=== PATIENT | female | born 1955 | race Caucasian/White ===

== ENCOUNTER 2021-04-18 17:18 | Emergency (ER) | payer MEDICARE, BC ==
[~2021-04-18] VITALS: Ht 162.6 cm; Wt 86.2 kg
[~2021-04-18 17:18] MED LIST: CRANBERRY; LISINOPRIL-HCT1 EAC4 PO; PANTOPRAZOLE SO40 MG PO; PHENERGAN 25 MG; Z.0.ATIVAN1 MG; Z.0.DEXILANT60 MG PO; nexium
[2021-04-18] MEDS ORDERED: IBUPROFEN IB200 MG PO (17:31)
[2021-04-18] MEDS ORDERED: LIDOCAINE HCL 2% LOCAL 20 ML VIAL ONE (17:40)
[2021-04-18] MEDS ORDERED: BACITRACIN ZINC 0.9GM TP ONE ×2 (17:41→17:45)
[2021-04-18] MEDS ORDERED: LIDOCAINE HCL 2% LOCAL 20 ML VIAL INJ ONE (17:45)
[2021-04-18] MEDS ORDERED: TETANUS/DIPHTHERIA TOX ADULT 0.5 ML SYR ONE (18:22)
[2021-04-18] MEDS ORDERED: TETANUS/DIPHTHERIA TOX ADULT 0.5 ML SYR IM ONE (18:30)
== END 2021-04-18 18:28 | disposition home or self-care (01) ==
LOC: FSED 17:25
DX: S61.212A Laceration without foreign body of right middle finger without damage to nail, initial encounter (principal); G89.11 Acute pain due to trauma; W31.89XA Contact with other specified machinery, initial encounter; Z23 Encounter for immunization
CPT/HCPCS: 12001; 90471; 90714; 99283; J2001

== ENCOUNTER 2021-05-02 12:11 | Emergency (ER) | payer MEDICARE, BC ==
[~2021-05-02] VITALS: Ht 162.6 cm; Wt 90.7 kg
[~2021-05-02 12:11] MED LIST changes: +IBUPROFEN IB200 MG PO
[2021-05-02] MEDS ORDERED: CEPHALEXIN500 MG PO (12:19)
== END 2021-05-02 12:24 | disposition home or self-care (01) ==
LOC: FSED 12:20
DX: Z48.02 Encounter for removal of sutures (principal)
CPT/HCPCS: 99282; S0630